=== PATIENT | female | born 1990 | race Caucasian/White ===

== ENCOUNTER 2018-06-30 22:59 | Emergency (ER) | payer OTHER ==
[~2018-06-30] VITALS: Ht 160 cm; Wt 58.5 kg
[2018-06-30 23:04] VITALS: Ht 160 cm; Wt 58.5 kg
[2018-07-01 00:34] VITALS: BP 106/78
[2018-07-01 00:40] LABS: microscopic required? YES; urine erythrocyte NEGATIVE (NEGATIVE)
== END 2018-07-01 00:34 | disposition home or self-care (01) ==
LOC: ED 22:59
PROVIDERS: Emergency Medicine
DX: O98.811 Other maternal infectious and parasitic diseases complicating pregnancy, first trimester (principal); Z3A.01 Less than 8 weeks gestation of pregnancy; Z88.0 Allergy status to penicillin; Z88.1 Allergy status to other antibiotic agents

== ENCOUNTER 2018-08-29 20:39 | Emergency (ER) | payer OTHER ==
[~2018-08-29] VITALS: Ht 160 cm; Wt 57.2 kg
[2018-08-29 20:50] VITALS: Ht 160 cm; Wt 57.2 kg
[2018-08-29 21:33] LABS: BASOPHIL % 0.6 % (0-2); PLATELET COUNT 285 x10^3mcL (130-400); RED CELL DISTRIBUTION WIDTH 15.4 % (11.5-14.5)
[2018-08-29 21:41] LABS: CALCIUM 8.7 mg/dL (8.5-10.1); CARBON DIOXIDE 23.9 mmol/L (21-32); CHLORIDE SERUM 103 mmol/L (98-107); CREATININE SERUM 0.5 mg/dL (0.6-1.0); GFR1 > 60 mL/min; GLUCOSE SERUM 80 mg/dL (74-106); POTASSIUM SERUM 3.5 mmol/L (3.5-5.1); SODIUM SERUM 137 mmol/L (136-145)
[2018-08-29 21:48] LABS: ALBUMIN 3.2 g/dL (3.4-5.0); ALKALINE PHOSPHATASE 131 U/L (46-116); ALT/SGPT 24 U/L (14-59); AMYLASE 92 U/L (25-115); AST/SGOT 17 U/L (15-37); LIPASE 116 IU/L (73-393); MAGNESIUM 1.9 mg/dL (1.8-2.4); TOTAL PROTEIN, SERUM 7.3 g/dL (6.4-8.2)
[2018-08-29 21:55] LABS: microscopic required? NO
[2018-08-29 22:05] LABS: UA SPECIFIC GRAVITY >=1.030 (1.005-1.035); urine erythrocyte NEGATIVE (NEGATIVE)
[2018-08-30 03:45] VITALS: BP 95/50
== END 2018-08-30 03:45 | disposition home or self-care (01) ==
LOC: ED 20:39
PROVIDERS: Emergency Medicine
DX: O21.0 Mild hyperemesis gravidarum (principal); Z3A.13 13 weeks gestation of pregnancy; Z88.0 Allergy status to penicillin
CPT/HCPCS: J2405; J2765; J7030; J7042